=== PATIENT | female | born 1960 | race Caucasian/White ===

== ENCOUNTER → 2017-04-28 | Outpatient (CLI) | payer BC ==
[2017-04-28 13:51] LABS: CH 32.4; CHCM 32.6; HDW 2.29; HGB 15.3 gm/dL (11.4-16.0); MCH 33.3 pg (25.0-35.0); MCHC 33.3 g/dL (31.0-37.0); Mean Platelet Volume 6.9; RDW 13.1 % (11.5-15.5)
== END | disposition home or self-care (01) ==
LOC: LABWHC1 12:56
PROVIDERS: ATTEND Nurse Practitioner Primary Care
DX: R00.2 Palpitations (principal)
CPT/HCPCS: 36415; 84443; 85027